=== PATIENT | male | born 1970 | race Two or more races ===

== ENCOUNTER 2019-06-18 20:14 | Emergency (ER) | payer OTHER ==
[~2019-06-18] VITALS: Ht 172.7 cm; Wt 96.9 kg
[2019-06-18 20:20] VITALS: BP 132/81
--- NOTE | 2019-06-18 20:23 | NUR ---
PT TO LOBBY, WAIT TIME EXPLAINED.
[2019-06-18] MEDS ORDERED: FLUORESCEIN OPHTHALMIC 1 MG STRIP ONE (20:56)
[2019-06-18] MEDS ORDERED: PROPARACAINE OPHTH 0.5%, 15ML ONE (20:56)
--- NOTE | 2019-06-18 20:57 | NUR ---
PT. AMBULATORY TO ED20 FROM LOBBY WITH STEADY GAIT. AT THIS TIME. REPORTS GOT SOMETHING IN HIS EYE TODAY WHILE AT WORK LEAF BLOWING. LEFT EYE RED/SWOLLEN/PAINFUL. MEDS GIVEN TO [facility] AT THIS TIME.
[2019-06-18] MEDS: FLUORESCEIN OPHTHALMIC 1 MG STRIP EACHEYE ONE (20:58)
[2019-06-18] MEDS: PROPARACAINE OPHTH 0.5%, 15ML EACHEYE ONE (20:59)
[2019-06-18] MEDS ORDERED: DIPH,PERTUSS(ACELL),TET VAC/PF 0.5 ML IM-VACC ONE (21:11)
[2019-06-18] MEDS: DIPH,PERTUSS(ACELL),TET VAC/PF 0.5 ML IM-VACC ONE ×2 (21:17→21:18)
== END 2019-06-18 22:07 | disposition home or self-care (01) ==
LOC: ED 22:01
DX: S05.02XA Injury of conjunctiva and corneal abrasion without foreign body, left eye, initial encounter (principal); X58.XXXA Exposure to other specified factors, initial encounter; Y93.89 Activity, other specified; Y92.89 Other specified places as the place of occurrence of the external cause; Y99.8 Other external cause status
CPT/HCPCS: 65222; 90471; 90715; 99284